=== PATIENT | female | born 1970 | race Caucasian/White ===

== ENCOUNTER 2023-08-06 09:28 | Outpatient (AMB) | payer OTHER, SELFPAY ==
--- NOTE | 2023-08-06 09:32 | MHC.OFFVIS ---
Intake Vital Signs 08/06/23 09:33 Height 5 ft Weight 121 lb BMI 23.6 BP 120/82 Blood Pressure Location Lt brachial Position Sitting Respiration 12 Pulse 90 Pulse Source Pulse Oximeter Pulse Oximetry (%) 99 Oxygen Delivery Method Room Air Intake Visit Reasons: Low back pain/CONFIRMED Allergies naproxen [From Aleve] Allergy (Severe, Verified 08/06/23 09:35) body swelling Medication List - Last Reconciled 08/06/23 by Beth Carbajal LPN albuterol sulfate mg inhalation albuterol sulfate 90 mcg/actuation (Ventolin HFA) 2 puffs inhalation Q4-6H PRN cholecalciferol (vitamin D3) 1,250 mcg PO QWEEK divalproex 500 mg PO BID loratadine 10 mg PO DAILY meloxicam 7.5 mg PO DAILY pantoprazole 20 mg PO DAILY paroxetine HCl 10 mg PO DAILY quetiapine 50 mg PO BEDTIME sucralfate (Carafate) PO trazodone 150 mg PO BEDTIME HPI Low back pain/CONFIRMED HPI Details 53-year-old female presents to the office today for evaluation of low back pain. The patient states that her pain started about 15 years ago, in 2009. She reports having pain in her axial lower back that radiates toward the right hip region down to her leg. Her pain score is rated at 6?8/10 in intensity and occasionally increases to 10/10 in intensity. She reports having pain when sitting or doing axial rotation. She is taking meloxicam. She has difficulty sleeping at night. She has done physical therapy and visited a chiropractor in the past. Her last physical therapy was in 2020. She had injections at [facility] with no relief. She has three children, all vaginal deliveries. [facility] Medical History (Updated 08/06/23 @ 10:25 by Vladislav Gutierrez) Asthma Allergic rhinitis Depression Lumbar disc herniation GERD (gastroesophageal reflux disease) Anxiety Sciatica, left side Marginal ulcer Intestinal malabsorption Review of Systems Const All systems reviewed & are unremarkable except as noted in HPI and below Physical Exam Vital Signs: Last Vital Signs Pulse 90 08/06/23 09:33 Resp 12 08/06/23 09:33 BP 120/82 08/06/23 09:33 Pulse Ox 99 08/06/23 09:33 Oxygen Delivery Method Room Air 08/06/23 09:33 BMI result Body Mass Index 23.6 General: Appears afebrile. Alert and oriented. Mood and affect appropriate. Follows and participates in conversation appropriately. Respiratory effort is unlabored. Able to transition from sit to stand unassisted. Tenderness on palpation overlying the sacroiliac joint, right more than left side. Lumbar extension reproduces pain in the lower back. Forward flexion does not reproduce pain to some stretching in the lower back region. Straight leg raise reproduces pain on the right side. Shaun, SI joint compression, and thrust is positive on the right side. Axial rotation reproduces pain in the axial low back. Results Reviewed Results Reviewed: MRI - LUMBAR SPINE (C-) CPT 18185 - Final Report HISTORY: Right lower back pain and right lateral lower extremity pain, numbness, and tingling. COMPARISON: No prior studies are available for comparison at [facility]. FINDINGS: A mild leftward curvature of the lumbar spine is noted. Subtle degenerative anterolisthesis of L4 on L5. The L5 vertebral body appears transitional and may be partially sacralized on the left. The lumbar vertebral bodies are normal in height and signal. No spondylolysis is noted. The L3-L4 and L4-L5 discs are desiccated. Mild-moderate loss of height of L4-L5. Facet arthrosis is noted at L4-L5. The conus terminates at L1. The paraspinal soft tissues and visualized retroperitoneal structures are unremarkable. L1-L2: Unremarkable. L2-L3: Unremarkable. L3-L4: Minimal broad-based posterior disc bulge. No central canal stenosis. No right and mild left foraminal narrowing. L4-L5: Facet arthrosis, ligamentum flavum thickening, degenerative anterolisthesis, and concentric disc bulge. Mild-moderate central canal narrowing with crowding of the traversing left L5 nerve roots. Mild foraminal narrowing. L5-S1: No central canal or foraminal stenosis. IMPRESSION: 1. 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 Assessment & Plan Assessment & Plan (1) Lumbar radiculitis: Code(s): M54.16 - Radiculopathy, lumbar region (2) Sacroiliac joint dysfunction: Code(s): M53.3 - Sacrococcygeal disorders, not elsewhere classified Plan A referral was provided to physical therapy for 3 months. The patient will receive a call to schedule an appointment. A script was also provided to the patient for physical therapy. If her pain continues to persist after 3 months of physical therapy, we will order an MRI scan before considering injections. Scribed for Dr. Brewer by Melody Bustillos, expert medical writer, on 08/06/2023. I, Dr. Brewer, have personally reviewed and agree with the information entered by the scribe. Orders: Orders PT Evaluation and Treatment 08/06/23 M53.3 - Sacrococcygeal disorders, not elsewhere classified, M54.16 - Radiculopathy, lumbar region Coding Level of Care Code New Pt Level 4 (38759) Diagnoses Lumbar radiculitis M54.16 Sacroiliac joint dysfunction M53.3
[2023-08-06 09:33] VITALS: BP 120/82; PULSE 90; RESP 12; O2SAT 99; BMI 23.6
== END 2023-08-06 09:57 | disposition home or self-care (01) ==
LOC: HO.PMC 09:28
PROVIDERS: PCP Internal Medicine; Referring Provider Internal Medicine; Visit Provider Internal Medicine
DX: M54.16 Radiculopathy, lumbar region (principal); M53.3 Sacrococcygeal disorders, not elsewhere classified
CPT/HCPCS: 99204

== ENCOUNTER → 2023-08-06 09:28 | Outpatient (BNVA) | payer OTHER, SELFPAY | PROVIDERS: PCP Internal Medicine; Referring Provider Internal Medicine; Visit Provider Internal Medicine | DX: M54.16 Radiculopathy, lumbar region (principal); M53.3 Sacrococcygeal disorders, not elsewhere classified | CPT/HCPCS: 99202 ==

== ENCOUNTER 2023-10-03 11:00 | Outpatient (RCR) | payer OTHER, SELFPAY ==
--- NOTE | 2023-09-10 14:49 | MHC.PT.EP ---
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 THE Pt RATES HER CURRENT CERV-> LS PAIN 8/10 W INTERMITTENT LEs SXS. THE Pt HAS LIMITED TRUNK AROM, DECR HIP MOB, WEAK TRUNK/ HIP GIRDLES, (+) SOFT TISSUE IRRIT AND POSTERIOR CHAIN TENSION. FUNCTIONALLY, THE Pt HAS DIFFIC SLEEPING, DCER STANDING, SITTING, LIFTING OMARI- LIMITED W PHYSICALLY DEMANDING ADLs AND INCR ACTIVITY. SHE CURRENTLY DENIES BOWEL/BLADDER SXS . THE Pt IS A GOOD PT CANDIDATE TO ADDRESS THE ABOVE LS/SI Jt DYSFUNCTION, DEV A HEP, IMPROVE FUNCT MOB OMARI, AND REDUCE SOFT TISSUE TENSION IMPROVE LUMBOPELVIC STRENGTH AND STAB. Frequency and Duration: The patient will be seen 2 x WK x 10 WKS Short Term Goals: *DECR THORACOLUMBAR SOFT TISSUE PAIN TO 2-3/10 * ACTIVATE ABDOM/ IMPROVE LUMBOPELVIC STABILITY *INCR FLEXIB IN PSOAS/HIP IR/ CALF MM TO IMPROVE EFFICIENCY OF GAIT ON LEVEL AND STAIRS *IMPROVE BODY MECH W SIMUAL ADLs Retirement Goals: *Pt WILL IMPROVE LUMBOPELVIC/ Lt LE STRENGTH TO AT LEAST 5-/5 *Pt REPORT INCREASED ADL/ ACTIVITY OMARI EVIDENT W IMPROVED OSWESTRY SCORE (32/50 AT EVAL) *Pt INDEP W PROGR HEP AND SELF-SX MGMT TECHN *Pt INDEP W PROGRESSIVE HEP AND SELF-SX MGMT TECHN Treatment Plan: Modalities to reduce pain, spasms and effusion. Manual therapy to restore motion and function. Therapeutic exercise to improve strength and flexibility. Neuromuscular re-education for posture and balance. Therapeutic activities to return to functional activities of daily living. Electronically signed by: ANGELICA DE SANTIAGO PT Please sign and return to therapist. Thank you for your referral.
--- NOTE | 2024-01-23 11:51 | MHC.PT.DC ---
[facility] [place] Office [place] Office [place] Office [address] Jerrica Luna [address] [phone] F: [phone] F: [phone] F: [phone] F: [phone] Physical Therapy Discharge Report Diagnosis: SACROCOCCYGEAL DISORDERS/ SI Jt DYSFUNCTION, LUMBAR RADICULOPATHY Date of Surgery: Date of Evaluation: 09/10/23 Date of Discharge: 01/23/24 Treatments to Date: 5 Cancellations to Date: 3 No Shows to Date: 1 Discharge Status: Improved Function Independent with HEP Patient Elected to Stop Visit Non-compliance Discharge Summary: THE Pt WAS RESPONDING WELL TO PT. AT HER LAST ATTENDED PT APPT, SHE NOTED SHE WAS FEELING BETTER AND ONLY HAD SORENESS W PROLONGED SITTING/ LONG DRIVES. THE Pt HAS A THOROUGH HEP AND A GREATER AWARENESS OF POSTURAL SELF CORRECTION. A FORMAL REASSESSMENT WAS NOT PERFORMED THE Pt DID NOT ATTEND HER LAST SCHEDULED PT APPTS. Electronically signed by: ANGELICA DE SANTIAGO,PT Please sign and return to therapist. Thank you for your referral.
== END 2024-01-23 11:51 | disposition home or self-care (01) ==
LOC: HO.PT 11:00
PROVIDERS: PCP Internal Medicine; Visit Provider Internal Medicine
DX: M53.3 Sacrococcygeal disorders, not elsewhere classified (principal); M54.16 Radiculopathy, lumbar region
CPT/HCPCS: 97110; 97140; 97162